=== PATIENT | female | born 1935 | race Caucasian/White ===

== ENCOUNTER 2017-11-09 15:44 | Observation (INO) ==
[2017-11-09] MEDS ORDERED: Naloxone 0.4 MG/ML INJ IVP PRN (20:08)
[2017-11-09] MEDS ORDERED: ALPRAZolam 0.5 MG TABLET PO PRN ×2 (20:15→22:30)
--- NOTE | 2017-11-09 20:25 | Internal Med History&Physical ---
Date of Encounter: 11/09/17 Time of Encounter: 20:36 Internal Medicine - H&P: HPI Chief complaint: Dizziness, presyncope episode History of present illness: Ms. Mccauley is a 82 year old female who presents as a transfer from [facility] for chest pain evaluation as she has been seeing her special police Dr. Emerson here in [place]. However on interview patient appears to be describing dizziness, presyncopal symptoms instead of chest pain as the predominant complaint. She has a past medical history of a cardiac pacer approximately 2 years ago visits with Dr. Emerson. She does not recall the indication for pacer placement. 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 She attempted to get up to get a glass of iced tea when she felt a generalized sense of weakness and almost fell but was able to contact her on the chair. She describes a lightheaded sensation. These symptoms were associated with pain along her left pacemaker site. The symptoms persisted for several hours but got better at about 4 PM. She is now symptom-free on evaluation at that site. On review he was reported that she had a elevated systolic blood pressure at the [facility] at approximately 180 systolic. Troponin performed at outside ER was unremarkable. EKG personally reviewed with rate of 86, ventricular paced Chest x-ray performed at outside ER was unremarkable without acute findings. Past Med Surg Social Fam HX - Past Medical History Medical history: hypertension, TIA Psychiatric history: depression - Past Surgical History Surgical History: cholecystectomy, hysterectomy - Social History Smoking Status: Former smoker Alcohol use: none Drug use: none - Family History Mother Hx Family Cardiac Disorders: Yes (CHF) Sister Hx Family Cardiac Disorders: Yes (DE) Hx Family Cancer: Yes Internal Medicine - H&P: Meds 3 Allergy/AdvReac Type Severity Reaction Status Date / Time No Known Allergies Allergy Unverified 07/29/15 11:11 All Systems PM: A 10-system review of systems was performed and is negative for pertinent findings except as documented above in the HPI. Review of systems: ROS 14 point review of systems reviewed as best as possible given presentation. Pertinent positive or negative as per HPI or otherwise reviewed as negative - Constitutional Vitals: Temp Pulse Resp BP Pulse Ox 97.9 F 78 16 160/82 96 11/09/17 18:57 11/09/17 18:57 11/09/17 18:57 11/09/17 18:57 11/09/17 18:57 Exam: General - AAO x 3 Psych - Appropriate affect/speech. No agitation Eyes - MICA. Eye lids intact. No scleral icterus Neuro - No gross peripheral or central neuro deficits on inspection Heart - cardiac device operable. Sinus. RRR. S1 and S2 present. No added HS/ murmurs appreciated. No elevated JVD appreciated. Lung - Adequate air entry b/l, No crackles/wheezes appreciated GI - Soft, non-tender. No hepatosplenomegaly/ascites. BS+ - No CVA/suprapubic tenderness or palpable bladder distension Skin - Intact. No rash/petechiae/ecchymosis. Warm extremities - Assessment and plan (1) Pre-syncope Current Visit: Yes Status: Acute Assessment and plan: orthostats, tele, carotid doppler, ambulate in the morning Has cardiac pacer - will consider cards to interrogate device - patient was transferred here to be evaluated by Dr Emerson Symptoms now resolved per patient (2) Artificial cardiac pacemaker Current Visit: Yes Status: Acute Assessment and plan: pending cardiac pacer interrogation (3) HTN (hypertension) Current Visit: Yes Status: Acute Assessment and plan: continue anti-HTN will trend BP in house - patient reported that her SBP was high in 180 at the [facility] Qualifiers: Hypertension type: essential hypertension Qualified Code(s): I10 - Essential (primary) hypertension (4) HLD (hyperlipidemia) Current Visit: Yes Status: Acute Assessment and plan: continue med Qualifiers: Hyperlipidemia type: mixed hyperlipidemia Qualified Code(s): E78.2 - Mixed hyperlipidemia (5) History of CVA (cerebrovascular accident) Current Visit: Yes Status: Acute Assessment and plan: She reports prior CVA , TIAs. No acute focal events to suggest acute CVA relating to this admission. - Time Spent With Patient Total time spent is greater than 50% in coordination of care (as documented) at patient's floor/unit and/or counseling patient:
[2017-11-10 02:09] LABS: Basophils % 0.6 %; Eosinophils # 0.2 K/mcL (0.0-0.6); Eosinophils % 3.3 %; Hematocrit 36.5 % (35.3-44.9); Immature Granulocytes % 0.2 % (0-4); Lymphocytes # 2.2 K/mcL (0.6-4.6); Lymphocytes % 43.2 %; Mean Corpuscular HGB Conc 32.9 g/dL (31.6-35.5); Mean Corpuscular Hemoglobin 28.1 pg (28.0-33.3); Mean Corpuscular Volume 85.5 fL (83.0-100.0); Mean Platelet Volume 9.7 fL (9.4-12.4); Monocytes # 0.5 K/mcL (0.0-1.3); Monocytes % 9.3 %; Neutrophils # 2.2 K/mcL (1.6-8.9); Platelet Count 185 K/mcL (140-400); Red Blood Count 4.27 M/mcL (3.82-4.97); Red Cell Distribution Width 13.1 % (11.5-14.5); Segmented Neutrophils % 43.4 %
[2017-11-10] MEDS ORDERED: DIOVAN HCT PO SCH (09:00)
[2017-11-10] MEDS ORDERED: NON-FORMULARY MEDICATION 1 EACH EACH (Ranitidine Hcl [Zantac] 300 MG) PO SCH (09:00)
[2017-11-10] MEDS ORDERED: Aspirin Enteric Coated 325 MG Tablet PO SCH (09:00)
[2017-11-10] MEDS: Valsartan 160 MG TABLET PO SCH (09:08)
[2017-11-10] MEDS: Cholecalciferol (D-3) 1,000 UNIT TABLET PO SCH (09:08)
[2017-11-10] MEDS: hydroCHLOROthiazide 25 MG TABLET PO SCH (09:08)
[2017-11-10] MEDS: Aspirin 325 MG TABLET PO SCH (09:08)
[2017-11-10] MEDS: Fluticasone Propionate Nasal 50 MCG/SPRAY BOTTLE NS SCH (09:12)
[2017-11-10] MEDS: Famotidine 20 MG TABLET PO SCH (09:12)
--- NOTE | 2017-11-10 10:10 | Event Note ---
Date of Encounter: 11/10/17 Time of Encounter: 10:07 - Cardiology Event Note Device check ordered by primary team for pre-syncope. [employer] PPM shows normal function. No recent events or arrhythmias. Last event recorded was SVT for 4 seconds on 10/30. Current sr with V pacing. Battery in good working order.
--- NOTE | 2017-11-10 16:27 | Internal Med Progress Note ---
Date of Encounter: 11/10/17 Time of Encounter: 16:25 - Assessment and plan (1) Pre-syncope Current Visit: Yes Status: Acute Assessment and plan: patient reports near syncopal episode on day of arrival. Symptoms now resolved. Etiology unknown at this time. No evidence of orthostasis. PPM irrigation showed normal function, no recent events or arrhythmias. Bilateral carotid Dopplers essentially normal. She does have a history of CVA/TIAs. Brain MRI pending (2) Artificial cardiac pacemaker Current Visit: Yes Status: Acute Assessment and plan: 11/10/17 device check showed PPM shows normal function. No recent events or arrhythmias. (3) HTN (hypertension) Current Visit: Yes Status: Acute Assessment and plan: per hx. BP controlled. Continue home BP medication. Monitor BP and titrate PRN Qualifiers: Hypertension type: essential hypertension Qualified Code(s): I10 - Essential (primary) hypertension (4) HLD (hyperlipidemia) Current Visit: Yes Status: Acute Assessment and plan: per hx. Cont home statin Qualifiers: Hyperlipidemia type: mixed hyperlipidemia Qualified Code(s): E78.2 - Mixed hyperlipidemia (5) History of CVA (cerebrovascular accident) Current Visit: Yes Status: Acute Assessment and plan: She reports prior CVA , TIAs. No acute focal events to suggest acute CVA relating to this admission however patient reports intermittent paresthesia of left-sided face and tongue. Brain MRI pending. Cont ASA (6) DVT prophylaxis Current Visit: Yes Status: Acute Assessment and plan: heparin - Time Spent With Patient Total time spent is greater than 50% in coordination of care (as documented) at patient's floor/unit and/or counseling patient: - Subjective Interval history: Seen and examined at bedside. Patient is new to me, information obtained from chart review and patient report. Overall says she feels better still having intermittent left-sided facial/tongue paresthesias. No double vision or headaches.. No extremity weakness. - Constitutional Vitals: Temp Pulse Resp BP Pulse Ox 97.8 F 64 15 130/71 92 11/10/17 14:43 11/10/17 14:43 11/10/17 14:43 11/10/17 14:43 11/10/17 14:43 General appearance: Present: A&O X 3, morbidly obese - Head Head exam: Present: atraumatic, normocephalic - Eye Eye exam: Present: PERRL, conjuntiva pink, sclera anicteric Pupils: Present: PERRL - Neck Neck exam general surgery: Present: supple, trachea midline. Absent: lymphadenopathy - Respiratory Respiratory exam: Present: CTAB. Absent: accessory muscle use, rales, rhonchi, wheezes - Cardiovascular Cardiovascular exam: Present: RRR, +S1, +S2. Absent: diastolic murmur, gallop, rubs, systolic murmur - GI/Abdominal GI/Abdominal exam: Present: normal bowel sounds, soft, no peritoneal signs. Absent: distended, tenderness - Extremities Exam Extremities exam: Present: warm, radial pulses palpable and symmetrical. Absent : calf tenderness, cyanotic, pedal edema - Neurological Exam Neurological exam: Present: CN II-XII intact, oriented X3, no focal deficits. Absent: pronater drift, facial droop, speech deficit - Skin Skin exam: Present: dry, intact Internal Medicine: Result - Labs CBC & Chem 7: 11/10/17 01:52 Labs: Short CBC 11/10/17 Range/Units 01:52 WBC 5.2 (4.3-11.1) K/mcL Hgb 12.0 (11.5-15.4) g/dL Hct 36.5 (35.3-44.9) % Plt Count 185 (140-400) K/mcL Neutrophils # 2.2 (1.6-8.9) K/mcL Cardiac Enzymes 11/09/17 11/10/17 Range/Units 20:32 01:52 Troponin I 0.03 < 0.03 (< 0.04) ng/mL Consult Discharge Plan - Plan Referrals: Shannon Wynne MD [Primary Care Provider] -
[2017-11-11] MEDS ORDERED: *HR* OxyCODONE/APAP 5/325 TABLET PO ONE (00:42)
[2017-11-11 05:21] LABS: Hematocrit 38.6 % (35.3-44.9); Hemoglobin 12.6 g/dL (11.5-15.4); Mean Corpuscular HGB Conc 32.6 g/dL (31.6-35.5); Mean Corpuscular Hemoglobin 27.8 pg (28.0-33.3); Mean Corpuscular Volume 85.2 fL (83.0-100.0); Mean Platelet Volume 9.9 fL (9.4-12.4); Platelet Count 180 K/mcL (140-400); Red Blood Count 4.53 M/mcL (3.82-4.97); Red Cell Distribution Width 13.2 % (11.5-14.5)
[2017-11-11 05:37] LABS: BUN/Creatinine Ratio 16 (6-26); Blood Urea Nitrogen 11 mg/dL (8-23); Calcium 8.9 mg/dL (8.6-10.3); Carbon Dioxide 30 mEq/L (23-29); Chloride 101 mEq/L (98-107); Glucose 95 mg/dL (70-105); Osmolality,Calculated 281 (280-300); Potassium 3.8 mEq/L (3.5-5.1); Sodium 136 mEq/L (136-145); eGFR For African Americans > 60 (> 60); eGFR For Non-African Americans > 60 (> 60)
[2017-11-11 09:02] LABS: Estimated Average Glucose 123 mg/dl; Hemoglobin A1C 5.9 %
[2017-11-11] MEDS: Fluticasone Propionate Nasal 50 MCG/SPRAY BOTTLE NS SCH (09:33)
[2017-11-11] MEDS: hydroCHLOROthiazide 25 MG TABLET PO SCH (09:34)
[2017-11-11] MEDS: Valsartan 160 MG TABLET PO SCH (09:35)
[2017-11-11] MEDS: Cholecalciferol (D-3) 1,000 UNIT TABLET PO SCH (09:35)
[2017-11-11] MEDS: Aspirin 325 MG TABLET PO SCH (09:36)
[2017-11-11] MEDS: Famotidine 20 MG TABLET PO SCH (09:41)
--- NOTE | 2017-11-11 16:52 | Internal Med Progress Note ---
Date of Encounter: 11/11/17 Time of Encounter: 16:48 - Assessment and plan (1) Pre-syncope Current Visit: Yes Status: Acute Assessment and plan: patient reports near syncopal episode on day of arrival. Symptoms now resolved. Etiology unknown at this time. No evidence of orthostasis. PPM irrigation showed normal function, no recent events or arrhythmias. Bilateral carotid Dopplers essentially normal. She does have a history of CVA/TIAs. Brain MRI pending ( patient has PPM and her psychiatry instructor Dr. Good needed to sign off on MRI which this has been done however patient is requesting to see official order signed by Dr. Good before she decides on whether to have the MRI are not. Of note the MRI will not be done until Tuesday if patient decides she wants to proceed.). (2) Artificial cardiac pacemaker Current Visit: Yes Status: Acute Assessment and plan: 11/10/17 device check showed PPM shows normal function. No recent events or arrhythmias. (3) HTN (hypertension) Current Visit: Yes Status: Acute Assessment and plan: per hx. BP controlled. Continue home BP medication. Monitor BP and titrate PRN Qualifiers: Hypertension type: essential hypertension Qualified Code(s): I10 - Essential (primary) hypertension (4) HLD (hyperlipidemia) Current Visit: Yes Status: Acute Assessment and plan: per hx. Cont home statin Qualifiers: Hyperlipidemia type: mixed hyperlipidemia Qualified Code(s): E78.2 - Mixed hyperlipidemia (5) History of CVA (cerebrovascular accident) Current Visit: Yes Status: Acute Assessment and plan: She reports prior CVA , TIAs. No acute focal events to suggest acute CVA relating to this admission however patient reports intermittent paresthesia of left-sided face and tongue. Brain MRI pending. Cont ASA (6) DVT prophylaxis Current Visit: Yes Status: Acute Assessment and plan: heparin - Time Spent With Patient Total time spent is greater than 50% in coordination of care (as documented) at patient's floor/unit and/or counseling patient: - Subjective Interval history: Seen and examined at bedside; sitting up on edge of bed. Denies recurrence of left facial pain/numbness or tingling. She is still undecided about the MRI. She is requesting to see 17 and riding or speak to Dr. Good before she proceeds. - Constitutional Vitals: Temp Pulse Resp BP Pulse Ox 98.3 F 76 17 120/68 92 11/11/17 15:43 11/11/17 15:43 11/11/17 15:43 11/11/17 15:43 11/11/17 15:43 General appearance: Present: A&O X 3, morbidly obese, no acute distress - Head Head exam: Present: atraumatic, normocephalic - Eye Eye exam: Present: PERRL, conjuntiva pink, sclera anicteric Pupils: Present: PERRL - Neck Neck exam general surgery: Present: supple, trachea midline. Absent: lymphadenopathy - Respiratory Respiratory exam: Present: CTAB. Absent: accessory muscle use, rales, rhonchi, wheezes - Cardiovascular Cardiovascular exam: Present: RRR, +S1, +S2. Absent: diastolic murmur, gallop, rubs, systolic murmur - GI/Abdominal GI/Abdominal exam: Present: normal bowel sounds, soft, no peritoneal signs. Absent: distended, tenderness - Extremities Exam Extremities exam: Present: warm, radial pulses palpable and symmetrical. Absent : calf tenderness, cyanotic, pedal edema - Neurological Exam Neurological exam: Present: CN II-XII intact, oriented X3, no focal deficits. Absent: pronater drift, facial droop, speech deficit - Skin Skin exam: Present: dry, intact Internal Medicine: Result - Labs CBC & Chem 7: 11/11/17 04:14 11/11/17 04:14 Labs: Short CBC 11/11/17 Range/Units 04:14 WBC 4.6 (4.3-11.1) K/mcL Hgb 12.6 (11.5-15.4) g/dL Hct 38.6 (35.3-44.9) % Plt Count 180 (140-400) K/mcL BMP 11/11/17 04:14 Sodium 136 Potassium 3.8 Chloride 101 Carbon Dioxide 30 H BUN 11 Creatinine 0.70 Glucose 95 Calcium 8.9 Consult Discharge Plan - Plan Referrals: Shannon Wynne MD [Primary Care Provider] -
[2017-11-11] MEDS ORDERED: Acetaminophen 325 MG TABLET PO PRN (21:15)
[2017-11-12 06:08] LABS: Hematocrit 39.9 % (35.3-44.9); Hemoglobin 13.1 g/dL (11.5-15.4); Mean Corpuscular HGB Conc 32.8 g/dL (31.6-35.5); Mean Corpuscular Hemoglobin 28.2 pg (28.0-33.3); Mean Corpuscular Volume 85.8 fL (83.0-100.0); Mean Platelet Volume 10.2 fL (9.4-12.4); Platelet Count 181 K/mcL (140-400); Red Blood Count 4.65 M/mcL (3.82-4.97); Red Cell Distribution Width 13.2 % (11.5-14.5)
[2017-11-12 06:29] LABS: Sodium 136 mEq/L (136-145)
[2017-11-12 06:30] LABS: BUN/Creatinine Ratio 18 (6-26); Blood Urea Nitrogen 13 mg/dL (8-23); Carbon Dioxide 30 mEq/L (23-29); Chloride 99 mEq/L (98-107); Glucose 91 mg/dL (70-105); Osmolality,Calculated 282 (280-300); Potassium 4.1 mEq/L (3.5-5.1); eGFR For African Americans > 60 (> 60); eGFR For Non-African Americans > 60 (> 60)
[2017-11-12] MEDS: Cholecalciferol (D-3) 1,000 UNIT TABLET PO SCH (08:22)
[2017-11-12] MEDS: Valsartan 160 MG TABLET PO SCH (08:23)
[2017-11-12] MEDS: hydroCHLOROthiazide 25 MG TABLET PO SCH (08:23)
[2017-11-12] MEDS: Aspirin 325 MG TABLET PO SCH (08:24)
[2017-11-12] MEDS: Fluticasone Propionate Nasal 50 MCG/SPRAY BOTTLE NS SCH (08:25)
[2017-11-12] MEDS: Famotidine 20 MG TABLET PO SCH (10:38)
--- NOTE | 2017-11-12 16:18 | Internal Med Progress Note ---
Date of Encounter: 11/12/17 Time of Encounter: 16:16 - Assessment and plan (1) Pre-syncope Current Visit: Yes Status: Acute Assessment and plan: patient reports near syncopal episode on day of arrival with associated left- sided pain/paresthesia. Symptoms continue to wax and wane. Etiology unknown at this time. No evidence of orthostasis. PPM irrigation showed normal function, no recent events or arrhythmias. Bilateral carotid Dopplers essentially normal. She does have a history of CVA/TIAs. Brain MRI pending; will be done on Tuesday11/15/16 with [employer] school admissions representative. Continue ASA (2) Artificial cardiac pacemaker Current Visit: Yes Status: Acute Assessment and plan: 11/10/17 device check showed PPM shows normal function. No recent events or arrhythmias. (3) HTN (hypertension) Current Visit: Yes Status: Acute Assessment and plan: per hx. BP controlled. Continue home BP medication. Monitor BP and titrate PRN Qualifiers: Hypertension type: essential hypertension Qualified Code(s): I10 - Essential (primary) hypertension (4) HLD (hyperlipidemia) Current Visit: Yes Status: Acute Assessment and plan: per hx. Cont home statin Qualifiers: Hyperlipidemia type: mixed hyperlipidemia Qualified Code(s): E78.2 - Mixed hyperlipidemia (5) History of CVA (cerebrovascular accident) Current Visit: Yes Status: Acute Assessment and plan: She reports prior CVA , TIAs. No acute focal events to suggest acute CVA relating to this admission however patient reports intermittent paresthesia of left-sided face and tongue. Brain MRI pending. Cont ASA (6) DVT prophylaxis Current Visit: Yes Status: Acute Assessment and plan: heparin - Time Spent With Patient Total time spent is greater than 50% in coordination of care (as documented) at patient's floor/unit and/or counseling patient: - Subjective Interval history: Seen and examined at bedside. She is complaining of intermittent left-sided facial numbness/paresthesia/pain. She also reports some sinus tenderness. Attempted to arrange for MRI to be done outpatient on Tuesday11/14/17 however she watches remain inpatient for this to be completed. Patient is agreeable to stay - Constitutional Vitals: Temp Pulse Resp BP Pulse Ox 98.0 F 77 16 131/68 97 11/12/17 16:05 11/12/17 16:05 11/12/17 16:05 11/12/17 16:05 11/12/17 16:05 General appearance: Present: A&O X 3, morbidly obese, no acute distress - Head Head exam: Present: atraumatic, normocephalic - Eye Eye exam: Present: PERRL, conjuntiva pink, sclera anicteric Pupils: Present: PERRL - Neck Neck exam general surgery: Present: supple, trachea midline. Absent: lymphadenopathy - Respiratory Respiratory exam: Present: CTAB. Absent: accessory muscle use, rales, rhonchi, wheezes - Cardiovascular Cardiovascular exam: Present: RRR, +S1, +S2. Absent: diastolic murmur, gallop, rubs, systolic murmur - GI/Abdominal GI/Abdominal exam: Present: normal bowel sounds, soft, no peritoneal signs. Absent: distended, tenderness - Extremities Exam Extremities exam: Present: warm, radial pulses palpable and symmetrical. Absent : calf tenderness, cyanotic, pedal edema - Neurological Exam Neurological exam: Present: CN II-XII intact, oriented X3, no focal deficits. Absent: pronater drift, facial droop, speech deficit - Skin Skin exam: Present: dry, intact Internal Medicine: Result - Labs CBC & Chem 7: 11/12/17 04:42 11/12/17 04:42 Labs: Short CBC 11/12/17 Range/Units 04:42 WBC 5.2 (4.3-11.1) K/mcL Hgb 13.1 (11.5-15.4) g/dL Hct 39.9 (35.3-44.9) % Plt Count 181 (140-400) K/mcL [facility] 11/12/17 04:42 Sodium 136 Potassium 4.1 Chloride 99 Carbon Dioxide 30 H BUN 13 Creatinine 0.73 Glucose 91 Calcium 9.0 Consult Discharge Plan - Plan Referrals: Shannon Wynne MD [Primary Care Provider] -
[2017-11-13 07:18] LABS: Hematocrit 42.9 % (35.3-44.9); Hemoglobin 14.2 g/dL (11.5-15.4); Mean Corpuscular HGB Conc 33.1 g/dL (31.6-35.5); Mean Corpuscular Hemoglobin 28.2 pg (28.0-33.3); Mean Corpuscular Volume 85.3 fL (83.0-100.0); Mean Platelet Volume 9.9 fL (9.4-12.4); Platelet Count 215 K/mcL (140-400); Red Blood Count 5.03 M/mcL (3.82-4.97); Red Cell Distribution Width 13.3 % (11.5-14.5)
[2017-11-13 07:37] LABS: BUN/Creatinine Ratio 16 (6-26); Blood Urea Nitrogen 11 mg/dL (8-23); Calcium 9.4 mg/dL (8.6-10.3); Carbon Dioxide 30 mEq/L (23-29); Chloride 97 mEq/L (98-107); Glucose 92 mg/dL (70-105); Osmolality,Calculated 279 (280-300); Potassium 4.1 mEq/L (3.5-5.1); Sodium 135 mEq/L (136-145); eGFR For African Americans > 60 (> 60); eGFR For Non-African Americans > 60 (> 60)
[2017-11-13] MEDS: Valsartan 160 MG TABLET PO SCH (10:01)
[2017-11-13] MEDS: Aspirin 325 MG TABLET PO SCH (10:01)
[2017-11-13] MEDS: Fluticasone Propionate Nasal 50 MCG/SPRAY BOTTLE NS SCH (10:02)
[2017-11-13] MEDS: hydroCHLOROthiazide 25 MG TABLET PO SCH (10:02)
[2017-11-13] MEDS: Cholecalciferol (D-3) 1,000 UNIT TABLET PO SCH (10:02)
[2017-11-13] MEDS: Famotidine 20 MG TABLET PO SCH (15:37)
--- NOTE | 2017-11-13 16:22 | Internal Med Progress Note ---
Date of Encounter: 11/13/17 Time of Encounter: 16:21 - Assessment and plan (1) Pre-syncope Current Visit: Yes Status: Acute Assessment and plan: patient reports near syncopal episode on day of arrival with associated left- sided pain/paresthesia. Symptoms continue to wax and wane. Etiology unknown at this time. No evidence of orthostasis. PPM irrigation showed normal function, no recent events or arrhythmias. Bilateral carotid Dopplers essentially normal. She does have a history of CVA/TIAs. Brain MRI pending; will be done on Tuesday11/15/16 with [employer] sales representative [employer]. Continue ASA (2) Artificial cardiac pacemaker Current Visit: Yes Status: Acute Assessment and plan: 11/10/17 device check showed PPM shows normal function. No recent events or arrhythmias. (3) HTN (hypertension) Current Visit: Yes Status: Acute Assessment and plan: per hx. BP controlled. Continue home BP medication. Monitor BP and titrate PRN Qualifiers: Hypertension type: essential hypertension Qualified Code(s): I10 - Essential (primary) hypertension (4) HLD (hyperlipidemia) Current Visit: Yes Status: Acute Assessment and plan: per hx. Cont home statin Qualifiers: Hyperlipidemia type: mixed hyperlipidemia Qualified Code(s): E78.2 - Mixed hyperlipidemia (5) History of CVA (cerebrovascular accident) Current Visit: Yes Status: Acute Assessment and plan: She reports prior CVA , TIAs. No acute focal events to suggest acute CVA relating to this admission however patient reports intermittent paresthesia of left-sided face and tongue. Brain MRI pending. Cont ASA (6) Sinusitis Current Visit: Yes Status: Acute Assessment and plan: Patient reported she was treated for acute sinus infection 07/2017 and now with recurrent sinus pressure and nasal congestion for the last 3 weeks. Start Augmentin, continue Flonase Qualifiers: Sinusitis location: unspecified location Chronicity: acute Recurrence: recurrent Qualified Code(s): J01.91 - Acute recurrent sinusitis, unspecified (7) DVT prophylaxis Current Visit: Yes Status: Acute Assessment and plan: heparin - Time Spent With Patient Total time spent is greater than 50% in coordination of care (as documented) at patient's floor/unit and/or counseling patient: - Subjective Interval history: Seen and examined at bedside. Still having intermittent left-sided facial numbness/paresthesia/pain. Also cont to report sinus tenderness. - Constitutional Vitals: Temp Pulse Resp BP Pulse Ox 98.0 F 76 14 132/76 96 11/13/17 15:19 11/13/17 15:19 11/13/17 15:19 11/13/17 15:19 11/13/17 15:19 General appearance: Present: A&O X 3, morbidly obese, no acute distress - Head Head exam: Present: atraumatic, normocephalic - Eye Eye exam: Present: PERRL, conjuntiva pink, sclera anicteric Pupils: Present: PERRL - Neck Neck exam general surgery: Present: supple, trachea midline. Absent: lymphadenopathy - Respiratory Respiratory exam: Present: CTAB. Absent: accessory muscle use, rales, rhonchi, wheezes - Cardiovascular Cardiovascular exam: Present: RRR, +S1, +S2. Absent: diastolic murmur, gallop, rubs, systolic murmur - GI/Abdominal GI/Abdominal exam: Present: normal bowel sounds, soft, no peritoneal signs. Absent: distended, tenderness - Extremities Exam Extremities exam: Present: pedal edema, warm, radial pulses palpable and symmetrical. Absent: calf tenderness, cyanotic - Neurological Exam Neurological exam: Present: CN II-XII intact, oriented X3, no focal deficits. Absent: pronater drift, facial droop, speech deficit - Skin Skin exam: Present: dry, intact Internal Medicine: Result - Labs CBC & Chem 7: 11/13/17 06:13 11/13/17 06:13 Labs: Short CBC 11/13/17 Range/Units 06:13 WBC 6.0 (4.3-11.1) K/mcL Hgb 14.2 (11.5-15.4) g/dL Hct 42.9 (35.3-44.9) % Plt Count 215 (140-400) K/mcL BMP 11/13/17 06:13 Sodium 135 L Potassium 4.1 Chloride 97 L Carbon Dioxide 30 H BUN 11 Creatinine 0.68 Glucose 92 Calcium 9.4 Consult Discharge Plan - Plan Referrals: Shannon Wynne MD [Primary Care Provider] -
[2017-11-13] MEDS: *HR* Heparin 5,000 UNIT/ML VIAL SQ SCH ×2 (16:44→21:40)
[2017-11-14] MEDS: *HR* Heparin 5,000 UNIT/ML VIAL SQ SCH (05:53)
[2017-11-14 06:14] LABS: Hematocrit 38.4 % (35.3-44.9); Hemoglobin 12.9 g/dL (11.5-15.4); Mean Corpuscular HGB Conc 33.6 g/dL (31.6-35.5); Mean Corpuscular Hemoglobin 28.4 pg (28.0-33.3); Mean Corpuscular Volume 84.4 fL (83.0-100.0); Mean Platelet Volume 9.9 fL (9.4-12.4); Platelet Count 178 K/mcL (140-400); Red Blood Count 4.55 M/mcL (3.82-4.97); Red Cell Distribution Width 13.2 % (11.5-14.5)
[2017-11-14 06:32] LABS: BUN/Creatinine Ratio 23 (6-26); Blood Urea Nitrogen 14 mg/dL (8-23); Carbon Dioxide 29 mEq/L (23-29); Chloride 98 mEq/L (98-107); Glucose 93 mg/dL (70-105); Osmolality,Calculated 276 (280-300); Potassium 3.9 mEq/L (3.5-5.1); Sodium 133 mEq/L (136-145); eGFR For African Americans > 60 (> 60); eGFR For Non-African Americans > 60 (> 60)
[2017-11-14] MEDS: Cholecalciferol (D-3) 1,000 UNIT TABLET PO SCH (08:13)
[2017-11-14] MEDS: hydroCHLOROthiazide 25 MG TABLET PO SCH (08:13)
[2017-11-14] MEDS: Valsartan 160 MG TABLET PO SCH (08:13)
[2017-11-14] MEDS: Fluticasone Propionate Nasal 50 MCG/SPRAY BOTTLE NS SCH (08:14)
[2017-11-14] MEDS: Aspirin 325 MG TABLET PO SCH (08:14)
[2017-11-14] MEDS ORDERED: Famotidine 20 MG TABLET PO SCH (09:00)
[2017-11-14 11:43] VITALS: BP 136/87
--- NOTE | 2017-11-14 12:47 | Discharge Summary ---
Orders not resulted at time of discharge: Pending orders 11/15/17 04:00 BMP [Basic Metabolic Panel] AM 0400 Complete Blood Count w/o Diff [HEME] AM 0400 Date of Encounter: 11/14/17 Time of Encounter: 12:46 - Discharge Diagnosis (1) Pre-syncope Priority: Primary Status: Acute Assessment and Plan: patient reports near syncopal episode on day of arrival with associated left- sided facial pain/paresthesia. Symptoms are chronic and continue to wax and wane. No evidence of orthostasis. PPM irrigation showed normal function, no recent events or arrhythmias. Bilateral carotid Dopplers essentially normal. Brain MRI negative for acute infarct. Symptoms possibly secondary to sinusitis as noted below. Symptoms resolved at time of discharge. Recommend outpatient echocardiogram if patient is agreeable. (2) Artificial cardiac pacemaker Priority: Primary Status: Acute Assessment and Plan: 11/10/17 device check showed PPM shows normal function. No recent events or arrhythmias. (3) HTN (hypertension) Priority: Primary Status: Acute Assessment and Plan: per hx. BP controlled. Continue home BP medication. Qualifiers: Hypertension type: essential hypertension Qualified Code(s): I10 - Essential (primary) hypertension (4) HLD (hyperlipidemia) Priority: Primary Status: Acute Assessment and Plan: per hx. Cont home statin Qualifiers: Hyperlipidemia type: mixed hyperlipidemia Qualified Code(s): E78.2 - Mixed hyperlipidemia (5) History of CVA (cerebrovascular accident) Priority: Primary Status: Acute Assessment and Plan: hx prior CVA , TIAs. No acute focal events to suggest acute CVA relating to this admission however patient reports intermittent paresthesia to left-side face and tongue. Brain MRI negative for acute infarct. Cont ASA (6) Sinusitis Priority: Primary Status: Acute Assessment and Plan: reported being treated for acute sinus infection 07/2017 and now with recurrent sinus pressure and nasal congestion for the last 3 weeks. Sinusitis could possibly be contributing to left-sided facial paresthesia. Symptoms improved with Augmentin, Flonase. Qualifiers: Sinusitis location: unspecified location Chronicity: acute Recurrence: recurrent Qualified Code(s): J01.91 - Acute recurrent sinusitis, unspecified Hospital course: Please see assessment and plan for Hospital course Discharge discussed with: patient (Seen and examined at bedside. Sitting up on edge of bed. Says she feels better would like to discharge home today. No paresthesia or numbness to left side of face. Although she does tell me today that the symptoms have been present for months. No headache, no double vision. No vision changes. No extremity weakness. Offered echocardiogram well hospitalized and patient did not want to stay. Recommend following up with PCP) - Time Spent with Patient Total time spent providing and/or coordinating discharge services: - Discharge Medications Prescriptions: Amoxicillin/Clavulanate [Augmentin] 875 mg PO BIDWM 7 Days #14 tablet Home Medications: ALPRAZolam [Xanax 0.5 MG Tablet] 0.5 mg PO PRN PRN 11/09/17 [History] Aspirin [Ecotrin] 325 mg PO DAILY 11/09/17 [History] Cholecalciferol (D-3) [Vitamin D] 2,000 unit PO DAILY 11/09/17 [History] DULoxetine [Cymbalta] 30 mg PO DAILY 11/09/17 [History] Ezetimibe [Zetia] 10 mg PO DAILY 11/09/17 [History] Guaifenesin [Mucinex] 600 mg PO DAILY 11/09/17 [History] Lansoprazole [Prevacid] 30 mg PO DAILY 11/09/17 [History] Mometasone Furoate [Nasonex] 50 mg NS DAILY 11/09/17 [History] Ranitidine HCl [Zantac] 300 mg PO DAILY 11/09/17 [History] Valsartan/Hydrochlorothiazide [Diovan Hct 320-12.5 mg Tab] 1 tab PO DAILY [History] Amoxicillin/Clavulanate [Augmentin] 875 mg PO BIDWM 7 Days #14 tablet 11/14/17 [ Rx] Allergies/Adverse Reactions: 3 Allergy/AdvReac Type Severity Reaction Status Date / Time Sulfa (Sulfonamide Allergy Severe Seizure Verified 11/09/17 21:25 Antibiotics) Krbcbik-Cmq-[id number] Reductase Allergy Swelling Verified 11/09/17 21:25 Inhibitor of [Statins] Lip/Tongue/Throat Date of admission: 11/09/17 18:45 Primary care physician: Shannon Wynne Consults: 11/09/17 20:10 Consult to Cardiology [CONS] Routine Comment: Consulting Provider: [facility] Reason for Consult: interrogate pacer - weakness/pre syncope Call Completed: No Discharging clinician: Ashley Burgos Anticipated date of discharge: 11/14/17 - Constitutional Vitals: Temp Pulse Resp BP Pulse Ox 98.0 F 74 16 136/87 99 11/14/17 11:42 11/14/17 11:42 11/14/17 11:42 11/14/17 11:42 11/14/17 11:42 General appearance: Present: A&O X 3, morbidly obese, no acute distress - Head Head exam: Present: atraumatic, normocephalic - Eye Eye exam: Present: PERRL, conjuntiva pink, sclera anicteric Pupils: Present: PERRL - Neck Neck exam general surgery: Present: supple, trachea midline. Absent: lymphadenopathy - Respiratory Respiratory exam: Present: CTAB. Absent: accessory muscle use, rales, rhonchi, wheezes - Cardiovascular Cardiovascular exam: Present: RRR, +S1, +S2. Absent: diastolic murmur, gallop, rubs, systolic murmur - GI/Abdominal GI/Abdominal exam: Present: normal bowel sounds, soft, no peritoneal signs. Absent: distended, tenderness - Extremities Exam Extremities exam: Present: warm, radial pulses palpable and symmetrical. Absent : calf tenderness, cyanotic, pedal edema - Neurological Exam Neurological exam: Present: CN II-XII intact, oriented X3, no focal deficits. Absent: pronater drift, facial droop, speech deficit - Skin Skin exam: Present: dry, intact - Patient Status Disposition: Home, Self-Care Condition: Good Functional capacity at discharge: uses cane/walker Overall status at discharge: patient is back to baseline - Discharge Instructions Instructions: Sinusitis (GEN), Amoxicillin/Clavulanate Potassium (By mouth) Follow Up With: Shannon Wynne MD [Primary Care Provider] - (Please follow-up within 7-10 days) - Diet and Activity Activity: increase activity as tolerated Diet: diabetic diet, low fat, low cholesterol
== END 2017-11-14 14:10 | disposition home or self-care (01) ==
LOC: 3BNU
PROVIDERS: ADMIT Internal Medicine Hematology & Oncology; ATTEND Internal Medicine

== ENCOUNTER 2021-04-13 00:05 | Observation (INO) ==
[2021-04-13] MEDS ORDERED: Naloxone 0.4 MG/ML INJ IVP PRN (02:23)
[2021-04-13] MEDS ORDERED: Melatonin 3 MG TABLET PO PRN (02:23)
[2021-04-13] MEDS ORDERED: Ondansetron 4 MG/2 ML VIAL IVP PRN (02:23)
[2021-04-13 02:49] LABS: Basophils % 0.2 %; Eosinophils % 0.2 %; Hematocrit 37.4 % (35.3-44.9); Hemoglobin 12.4 g/dL (11.5-15.4); Immature Granulocytes % 0.2 % (0-4); Lymphocytes # 1.3 K/mcL (0.6-4.6); Lymphocytes % 22.4 %; Mean Corpuscular HGB Conc 33.2 g/dL (31.6-35.5); Mean Corpuscular Hemoglobin 29.5 pg (28.0-33.3); Mean Platelet Volume 9.5 fL (9.4-12.4); Monocytes # 0.6 K/mcL (0.0-1.3); Monocytes % 9.3 %; Neutrophils # 4.1 K/mcL (1.6-8.9); Platelet Count 158 K/mcL (140-400); Segmented Neutrophils % 67.7 %
[2021-04-13 02:59] LABS: INR 1.1; Prothrombin Time 12.6 Seconds (9.4-12.1)
[2021-04-13 03:11] LABS: Alanine Aminotransferase 8 Units/L (7-52); Albumin 3.4 g/dL (3.5-5.7); Albumin/Globulin Ratio 1.6 (1.1-2.2); Alkaline Phosphatase 44 Units/L (34-104); Aspartate Amino Transferase 16 Units/L (13-39); BUN/Creatinine Ratio 25 (6-26); Bilirubin,Total 0.6 mg/dL (0.3-1.0); Blood Urea Nitrogen 16 mg/dL (8-23); Calcium 8.3 mg/dL (8.6-10.3); Carbon Dioxide 25 mEq/L (23-29); Chloride 98 mEq/L (98-107); Globulin 2.1 g/dL (2.4-3.5); Glucose 110 mg/dL (70-105); Magnesium 1.9 mg/dL (1.6-2.6); Osmolality,Calculated 276 (280-300); Phosphorous 2.7 mg/dL (2.7-4.5); Sodium 132 mEq/L (136-145); Total Protein 5.5 g/dL (6.4-8.9); eGFR For African Americans > 60 (> 60); eGFR For Non-African Americans > 60 (> 60)
[2021-04-13] MEDS: Pantoprazole 40 MG VIAL IVP SCH ×2 (05:45→16:34)
[2021-04-13] MEDS ORDERED: Dextrose Gel 15 GM/37.5 ML TUBE PO PRN ×2 (07:53)
[2021-04-13] MEDS ORDERED: *HR* Dextrose 50 % in Water (Syg) 50 ML SYRINGE IVP PRN (07:53)
[2021-04-13] MEDS ORDERED: D5% in Water 1,000 ML IVC PRN (07:53)
[2021-04-13] MEDS ORDERED: cefTRIAXone 1,000 MG in Water for inj. (sterile) 10 ML IVP SCH (09:00)
[2021-04-13 11:13] LABS: Hematocrit 36.7 % (35.3-44.9)
[2021-04-13] MEDS ORDERED: NON-FORMULARY MEDICATION 1 EACH EACH (Valsartan/Hydrochlorothiazide [Diovan Hct 320-12.5 M PO SCH (12:45)
[2021-04-13] MEDS: Valsartan 160 MG TABLET PO SCH (12:59)
[2021-04-13] MEDS: hydroCHLOROthiazide 25 MG TABLET PO SCH (12:59)
[2021-04-13] MEDS ORDERED: ALPRAZolam 0.5 MG TABLET PO PRN (17:52)
[2021-04-14 05:42] LABS: Hematocrit 36.7 % (35.3-44.9); Mean Corpuscular HGB Conc 32.7 g/dL (31.6-35.5); Mean Corpuscular Hemoglobin 29.1 pg (28.0-33.3); Mean Corpuscular Volume 88.9 fL (83.0-100.0); Mean Platelet Volume 9.7 fL (9.4-12.4); Platelet Count 156 K/mcL (140-400); Red Blood Count 4.13 M/mcL (3.82-4.97); Red Cell Distribution Width 12.7 % (11.5-14.5); White Blood Count 3.6 K/mcL (4.3-11.1)
[2021-04-14] MEDS: Pantoprazole 40 MG VIAL IVP SCH (05:47)
[2021-04-14 05:57] LABS: BUN/Creatinine Ratio 19 (6-26); Blood Urea Nitrogen 13 mg/dL (8-23); Calcium 8.7 mg/dL (8.6-10.3); Carbon Dioxide 30 mEq/L (23-29); Chloride 98 mEq/L (98-107); Glucose 79 mg/dL (70-105); Magnesium 1.8 mg/dL (1.6-2.6); Osmolality,Calculated 273 (280-300); Phosphorous 3.2 mg/dL (2.7-4.5); Potassium 3.6 mEq/L (3.5-5.1); Sodium 132 mEq/L (136-145); eGFR For African Americans > 60 (> 60); eGFR For Non-African Americans > 60 (> 60)
[2021-04-14] MEDS ORDERED: Amoxicillin/Clavulanate 500 MG TABLET PO SCH (08:00)
[2021-04-14] MEDS ORDERED: Cholecalciferol (D-3) 1,000 UNIT (25MCG) TABLET PO SCH (09:00)
[2021-04-14] MEDS ORDERED: Famotidine 20 MG TABLET PO SCH (09:00)
[2021-04-14] MEDS: Valsartan 160 MG TABLET PO SCH (09:51)
[2021-04-14] MEDS: hydroCHLOROthiazide 25 MG TABLET PO SCH (09:52)
[2021-04-14] MEDS ORDERED: Sennosides/Docusate Sodium TABLET PO SCH (13:45)
[2021-04-14] MEDS ORDERED: polyethylene glycoL 3350 17 GM POWD.PACK PO SCH (13:45)
[2021-04-14 16:06] VITALS: BP 136/84; PULSE 69; TEMP 97.6; O2SAT 95
[2021-04-14] MEDS ORDERED: *HR* Propofol 200 MG/20 ML VIAL IVP ONE (17:00)
[2021-04-14] MEDS ORDERED: Lidocaine -MPF 2% 5 ML VIAL SQ ONE (17:00)
== END 2021-04-14 17:01 | disposition home or self-care (01) ==
LOC: 3ANU → SUATTDRO 01:56
PROVIDERS: ADMIT Family Medicine; ATTEND Internal Medicine
PROC: ENDOEBX (2021-04-13 14:15)